=== PATIENT | female | born 1955 | race Caucasian/White ===

== ENCOUNTER → 2016-07-25 16:46 | Outpatient (CLI) | payer BC | END | disposition home or self-care (01) | LOC: D.MAMMO 06-30 09:30 | DX: N63 Unspecified lump in breast (principal) ==

== ENCOUNTER → 2017-08-31 10:00 | Outpatient (CLI) | payer BC ==
[~2017-08-31 10:00] MED LIST: BRILINTA90 MG PO; COREG 3.1253.125 MG PO; LEVOXYL125 MCG PO; LISINOPRIL2.5 MG PO; NEXIUM40 MG PO; PATANOL 0.1 % OP5 ML EACH EYE; PROAIR HFA8.5 GM INH; VALIUM10 MG PO
[2017-10-08 09:58] VITALS: BMI 32.4
== END | disposition home or self-care (01) ==
LOC: D.MAMMO 09:45
DX: Z12.31 Encounter for screening mammogram for malignant neoplasm of breast (principal)

== ENCOUNTER 2017-10-06 00:24 | Inpatient (IN) | payer BC ==
[2017-10-06] VITALS (23 sets, daily range): BP systolic 97–142; BP diastolic 48–105; BMI 32.3
[~2017-10-06] VITALS: Ht 167.6 cm; Wt 91.2 kg
--- NOTE | ~2017-10-06 | HEMODYNAMI ---
PATIENT:ARIAN PERAZA MEDICAL RECORD: [id number] : 53 LOCATION:D.CAT ADMISSION DATE: 10/06/17 Generatedon:10/06/20175:28 Patient name: ARIAN PERAZA Patient #: [id number] SSN: : 1955 Date of study: 10/06/2017 Page: Of Hemodynamic Procedure Report Patient Data Patient Demographics Procedure consent was obtained First Name: ARIAN Gender: Female Last Name: STU : 1955 [facility] Initial: DUY Age: 61 year(s) Patient #: [id number] Race: Unknown Additional ID: [id number] Contact details [address]: [address] [place] [address] State: [place] City: [place] Zip code: [address] Admission Admission Data Admission Date: 10/06/2017 Admission Time: 0:24 Procedure Procedure Types Cath Procedure Diagnostic Procedure LHC LHC w/Coronaries PCI Procedure AMI/SVG/INSIDE ACCOUNT EXECUTIVE PTCA or Stent AMI-BMS/RACHEL Initial Procedure Description Procedure Date Procedure Date: 10/06/2017 Procedure Start Time: 4:26 Procedure End Time: 5:28 Procedure Staff Name Function Mandeep Ferguson MD Performing Physician Yosef Alvarez RT Monitor Lisa Jose RT Scrub Santos Summers RN Nurse Procedure Data Cath Procedure Fluoroscopy Diagnostic fluoroscopy Total fluoroscopy Time: time: 21.3 min 21.3 min Diagnostic fluoroscopy Total fluoroscopy dose: dose: 1340 mGy 1340 mGy Contrast Material Contrast Material Type Amount (ml) Isovue 300 199 Entry Location Entry Primary Successful Side Size Upsize Upsize Entry Closure Succes sful Closure Location (Fr) 1 (Fr) 2 (Fr) Remarks Device Remarks Femoral Right 6 Fr Exoseal artery Short Estimated blood loss: 10 ml Diagnostic catheters Device Type Used For End Catheter Placement MULTIPACK JL 4.0 5Fr Procedure catheter MULTIPACK 3DRC 5Fr Procedure catheter MULTIPACK Pigtail 5 Fr Procedure catheter Procedure Complications No complications Procedure Medications Medication Administration Route Dosage Oxygen etCO2 Nasal cannula 2 l/min Heparin Flush Bag added to field 2 bags (1000units/500ml NS) 0.9% NaCl I.V. 100 ml/hr Fentanyl I.V. 50 mcg Versed I.V. 1 mg Fentanyl I.V. 50 mcg Versed I.V. 1 mg Heparin Bolus I.V. 9000 units Lopressor I.V. 2.5 mg Fentanyl I.V. 50 mcg Integrilin (Bolus I.V. 9 ml 2mg/ml) Lopressor I.V. 2.5 mg Integrilin (Bolus wasted 1 ml 2mg/ml) Integrilin Drip I.V. drip 14.4 ml/hr (75mg/100ml) Brilinta P.O. 180 mg Hemodynamics Rest Heart Rate: 107 (bpm) Pressure Samples Time Site Value (mmHg) Purpose Heart Use Rate(bpm) 4:32 AO 138/94(115) Snapshot 107 5:12 LV 134/26,40 Snapshot 94 5:13 AO 131/91(110) Pullback 95 5:13 LV 146/15,34 Pullback 95 Gradients Valve Time Site 1 Site 2 Mean SEP/DFP Peak To Heart Use (mmHg) (sec/min) Peak Rate (mmHg) (bpm) Aortic 5:13 LV AO 5 9 15 95 146/15,34 131/91(110) Calculations Valve P-P Mean Valve Index Valve Source Name Gradient Area Flow (cm2) Aortic 15 5 15 5 Snapshots Pre Cath Intra NCS Post Cath Vital Signs Time Heart Resp SPO2 etCO2 NIBP (mmHg) Rhythm Pain Sedation Rate (ipm) (%) (mmHg) Status Level (bpm) 4:21:54 96 17 90 33 Measuring NSR 0 (11) 10(A) , No pain 4:23:57 79 20 96 38.3 Time NSR 0 (11) 10(A) Exceeded , No pain 4:26:45 105 18 92 0 139/92(109) NSR 0 (11) 10(A) , No pain 4:31:32 105 16 94 39.8 133/97(116) NSR 0 (11) 9(A) , No pain 4:36:17 101 17 94 0 139/99(111) NSR 0 (11) 9(A) , No pain 4:41:05 102 17 95 0 143/103(119) NSR 0 (11) 9(A) , No pain 4:45:54 96 17 95 0 151/99(122) NSR 0 (11) 9(A) , No pain 4:50:43 95 17 94 0 133/104(121) NSR 0 (11) 9(A) , No pain 4:55:30 97 17 92 0 141/115(125) NSR 0 (11) 9(A) , No pain 5:00:18 97 17 92 0 133/97(108) NSR 0 (11) 9(A) , No pain 5:05:03 94 16 92 0 121/92(102) NSR 0 (11) 9(A) , No pain 5:09:48 95 16 92 39.8 116/88(103) NSR 0 (11) 9(A) , No pain 5:14:33 95 16 91 33.8 126/85(109) NSR 0 (11) 9(A) , No pain 5:19:19 97 16 92 36.8 122/94(113) NSR 0 (11) 9(A) , No pain 5:24:04 94 17 93 34.5 113/93(104) NSR 0 (11) 9(A) , No pain Medications Time Medication Route Dose Verified Delivered Reason Notes Effectiveness by by 4:24:00 Oxygen etCO2 2 Mandeep Santos Per physician Nasal l/min Marty Summers RN cannula 4:24:29 Heparin Flush added 2 Mandeep Santos Per physician Bag to bags Marty Summers RN (1000units/500ml field NS) 4:24:38 0.9% NaCl I.V. 100 Mandeep Santos Per physician ml/hr Marty Summers RN 4:24:47 Fentanyl I.V. 50 Mandeep Santos for sedation mcg Marty Summers RN 4:24:54 Versed I.V. 1 mg Mandeep Santos for sedation Marty Summers RN 4:26:37 Fentanyl I.V. 50 Mandeep Santos for sedation mcg Marty Summers RN 4:26:39 Versed I.V. 1 mg Mandeep Santos for sedation Marty Summers RN 4:35:36 Heparin Bolus I.V. 9000 Mandeep Santos for units Marty Summers RN anticoagulation 4:44:49 Lopressor I.V. 2.5 Mandeep Santos Per physician mg Marty Summers RN 4:48:46 Fentanyl I.V. 50 Mandeep Santos for sedation mcg Marty Summers RN 4:55:09 Integrilin I.V. 9 ml Mandeep Santos for (Bolus 2mg/ml) Marty Summers RN antiplatelet therapy 4:58:52 Lopressor I.V. 2.5 Mandeep Santos Per physician mg Marty Summers RN 5:08:51 Integrilin wasted 1 ml Mandeep Santos for (Bolus 2mg/ml) Marty Summers RN antiplatelet therapy 5:16:27 Integrilin Drip I.V. 14.4 Mandeep Santos for (75mg/100ml) drip ml/hr Marty Summers RN antiplatelet therapy 5:23:37 Brilinta P.O. 180 Mandeep Santos for mg Marty Summers RN antiplatelet therapy Procedure Log Time Note 4:00:45 Yosef CINTRON(R) sent for patient. Start room use. 4:07:46 Time tracking: Call back (After hours or weekends) 4:07:50 Plan of Care:Hemodynamics will remain stable., Cardiac rhythm will remain stable., Comfort level will be maintained., Respiratory function will remain adequate., Patient/ family verbilizes understanding of procedure., Procedure tolerated without complication., Recovers from procedure without complications.. 4:15:03 Patient received from ED to CCL 1 Alert and oriented. Tansferred to table in Supine position. 4:15:05 Warm blankets applied, and nilesh hugger turned on for patient comfort. 4:15:05 Correct patient and procedure confirmed by team. 4:15:06 Signed procedure consent form obtained from patient. 4:15:07 ECG and BP/O2 sat monitors applied to patient. 4:20:46 Vital chart was started 4:22:11 Rhythm: sinus rhythm 4:22:13 Full Disclosure recording started 4:22:24 H&P Date Dictated: 10/06/2017 Emergent; H&P N/A. 4:22:25 Pre-procedure instructions explained to patient. 4:22:26 Pre-op teaching completed and patient verbalized understanding. 4:22:30 Family in waiting room. 4:22:32 Patient NPO since Midnight. 4:22:34 Is the patient allergic to Iodine/contrast media? No. 4:22:45 Is patient on blood thinner?No 4:22:47 Patient diabetic? No. 4:22:49 Previous problem with sedation/anesthesia? No ? 4:22:50 Snore? Yes 4:22:51 Sleep apnea? No 4:22:52 Deviated septum? No 4:22:53 Opens mouth fully? Yes 4:22:53 Sticks out tongue? Yes 4:22:56 Airway obstruction? No ? 4:22:57 Dentures? No ? 4:23:00 Pre procedure: right dorsailis pedis pulse 1+ Palpable, but thready & weak; easily obliterated 4:23:03 Patient pain scale 0/10 ?. 4:23:09 IV patent on arrival in right forearm with 0.9% NaCl at [facility]. 4:23:16 Lab results completed and on chart. 4:23:19 Right groin area was prepped with chlora-prep and draped in sterile fashion 4:23:20 Alarms reviewed by R. N. 4:23:20 Sharps counted by scrub and verified by R.N. 4:23:22 --------ALL STOP TIME OUT------ 4:23:26 Final Timeout: patient, procedure, and site verified with staff and physician. All members of the team are in agreement. 4:23:27 Right groin site verified by team. 4:23:31 Physical assessment completed. ASA score P 2 - A patient with mild systemic disease as per Mandeep Ferguson MD. 4:23:34 Sedation plan: IV Moderate Sedation Medication:Versed, Fentanyl 4:23:45 Use device set Femoral Dx 4:23:55 Use device set FERGUSON PCI 4:24:00 Oxygen 2 l/min etCO2 Nasal cannula was administered by Santos Summers RN; Per physician; 4:24:29 Heparin Flush Bag (1000units/500ml NS) 2 bags added to field was administered by Santos Summers RN; Per physician; 4:24:38 0.9% NaCl 100 ml/hr I.V. was administered by Santos Summers RN; Per physician; 4:24:47 Fentanyl 50 mcg I.V. was administered by Santos Summers RN; for sedation; 4:24:54 Versed 1 mg I.V. was administered by Santos Summers RN; for sedation; 4:25:46 Vital chart was stopped 4:25:47 Vital chart was started 4:26:37 Fentanyl 50 mcg I.V. was administered by Santos Summers RN; for sedation; 4:26:39 Versed 1 mg I.V. was administered by Santos Summers RN; for sedation; 4:26:53 Procedure started. 4:26:56 Local anesthetic to right femoral artery with Lidocaine 2% by Mandeep Ferguson MD.INITIAL ACCESS ONLY 4:27:19 ACIST Syringe (92119) opened to sterile field. 4:27:19 Bag Decanter (2002S) opened to sterile field. 4:27:20 Medline Cath Pack ([id number]) opened to sterile field. 4:27:22 ACIST Hand Control (53320) opened to sterile field. 4:27:23 ACIST Manifold (66875) opened to sterile field. 4:27:25 Tegaderm 4 x 4 (1626W) opened to sterile field. 4:27:26 PERCUTANEOUS ENTRY 19GA needle opened to sterile field. 4:27:30 DIAGNOSTIC WIRE .035 260cm J wire (311843) opened to sterile field. 4:27:31 DIAGNOSTIC Multipack 5Fr catheter set (VO9116) opened to sterile field. 4:27:33 TUBING High Pressure Extension Tubing (Marty) (TK1724L) opened to sterile field. 4:27:33 INFLATOR Merit BasixCompak (DJ1551) opened to sterile field. 4:27:40 BMW 300cm Sayre 2 J wire (1506880A) opened to sterile field. 4:27:43 SHEATH Prelude 6Fr 0.035 (MRT-9J-19-035) opened to sterile field. 4:27:53 A 6 Fr Short sheath was inserted into the Right Femoral artery 4:28:04 A MULTIPACK JL 4.0 5Fr catheter was advanced over the wire and used for Procedure. 4:28:26 LCA angiography performed. 4:28:29 Catheter exchanged over wire. 4:28:31 GUIDE 6FR XBLAD 3.5 catheter ([id number]) opened to sterile field. 4:30:03 A MULTIPACK 3DRC 5Fr catheter was advanced over the wire and used for Procedure. 4:30:08 RCA angiography performed. 4:30:10 Catheter exchanged over wire. 4:30:18 6 Fr XBLAD 3.5 guide catheter was inserted over the wire 4:32:06 Baseline sample Acquired. 4:32:26 BMW wire advanced. 4:35:36 Heparin Bolus 9000 units I.V. was administered by Santos Summers RN; for anticoagulation; 4:37:38 Wire removed, unable to cross lesion. 4:37:50 LUGE Straight 300cm 0.014 guide wire ([id number]) opened to sterile field. 4:38:00 Luge wire advanced. 4:44:49 Lopressor 2.5 mg I.V. was administered by Santos Summers RN; Per physician; 4:45:34 Wire removed, unable to cross lesion. 4:46:37 FIELDER XT J 300cm guide wire ([id number]) opened to sterile field. 4:47:09 Fielder wire advanced. 4:48:46 Fentanyl 50 mcg I.V. was administered by Santos Summers RN; for sedation; 4:50:30 Wire advanced across lesion. 4:52:49 Inflate balloon Inflation number: 1 A EMERGE OTW 2.5 x 20 balloon ([id number]) was prepped and advanced across the Prox LAD, then inflated to 10 KATE for 0:10 (min:sec). 4:54:05 Balloon advanced passed lesion. Wire exchange for Luge wire. 4:55:09 Integrilin (Bolus 2mg/ml) 9 ml I.V. was administered by Santos Summers RN; for antiplatelet therapy; 4:55:44 Multiple inflations made at 10 Atms. 4:56:53 Balloon removed over the wire. 4:58:52 Lopressor 2.5 mg I.V. was administered by Santos Summers RN; Per physician; 4:59:29 Place stent Inflation Number: 2 A INTEGRITY RX 3.0 x 30 stent ([id number]) was prepped and advanced across the Prox LAD. The stent was deployed at 10 KATE for 0:10 (min:sec). 5:01:26 Stent catheter was removed intact over wire. 5:02:43 Place stent Inflation Number: 3 A INTEGRITY OTW 3.5 X 18 stent ([id number]) was prepped and advanced across the Prox LAD. The stent was deployed at 10 KATE for 0:10 (min:sec). 5::44 Stent catheter was removed intact over wire. 5::44 Wire redirected to DIAG. 5:08:51 Integrilin (Bolus 2mg/ml) 1 ml wasted was administered by Santos Summers RN; for antiplatelet therapy; 5:11:02 The EMERGE OTW 2.0 x 15 balloon ([id number]) was advanced and then removed because of failure to cross lesion 5::24 Balloon removed over the wire. 5:11:24 Wire removed. 5:11:26 Guide catheter removed. 5:12:01 A MULTIPACK Pigtail 5 Fr catheter was advanced over the wire and used for Procedure. 5:13:37 LV angiography performed. 5:13:45 LV gram done using SOTO 5:13:51 EF : 40 % 5:13:52 LV hemodynamics recorded. 5:13:54 Injector settings: Ml/sec: 10, Volume: 20, 5:13:57 Catheter removed. 5:13:59 EXOSEAL 6Fr (EX600) opened to sterile field. 5:14:30 Sheath removed intact; hemostasis achieved with Exoseal to the Right Femoral artery. 5:14:37 Procedure ended.(Physican Out) 5:15:02 Fluoroscopy time 21.30 minutes. 5:15:06 Fluoroscopy dose: 1340 mGy 5:15:06 Flurop Dose total: 1340 5:15:11 Contrast amount:Isovue 300 199ml. 5:15:13 Sharps counted by scrub and verified by R.N. 5:15:14 Insertion/operative site no bleeding no hematoma. 5:15:16 Post-op/insertion site Right Femoral artery dressed using a 4 x 4 and Tegaderm. 5:15:18 Post Procedure Pulses reassessed and unchanged 5:15:20 Post-procedure physical assessment completed. ASA score P 2 - A patient with mild systemic disease as per Mandeep Ferguson MD. 5:15:56 Post procedure rhythm: unchanged. 5:15:59 Estimated blood loss: 10 ml 5:16:00 Post procedure instruction explained to patient.Patient verbalizes understanding. 5:16:01 Patient needs reinforcement of post procedure teaching. 5:16:11 Procedure type changed to Cath procedure, Diagnostic procedure, LHC, LHC w/Coronaries, PCI procedure, AMI/SVG/INSIDE ACCOUNT EXECUTIVE PTCA or Stent, AMI-BMS/RACHEL Initial 5:16:16 Procedure Complication : No complications 5:16:27 Integrilin Drip (75mg/100ml) 14.4 ml/hr I.V. drip was administered by Santos Summers RN; for antiplatelet therapy; 5:18:23 Procedure and supply charges have been captured, reviewed, submitted and are correct. 5:23:37 Brilinta 180 mg P.O. was administered by Santos Summers RN; for antiplatelet therapy; 5:27:38 See physician's report for complete and final results. 5:27:57 Report given to ICU. 5:28:03 Patient transfered to ICU with Bed. 5:28:06 Procedure ended. 5:28:06 Full Disclosure recording stopped 5:28:10 End room use (Document Last) 5:28:59 Vital chart was stopped Intervention Summary Intervention Notes Time ActionType Lesion and Equipment Action# Pressure Duration Attributes Used 4:52:49 Inflate Prox LAD EMERGE OTW 1 10 00:10 balloon 2.5 x 20 balloon ([id number]) 4:59:29 Place stent Prox LAD INTEGRITY RX 2 10 00:10 3.0 x 30 stent ([id number]) 5:02:43 Place stent Prox LAD INTEGRITY 3 10 00:10 OTW 3.5 X 18 stent ([id number]) 5:11:02 Discard EMERGE OTW Balloon 2.0 x 15 balloon ([id number]) Device Usage Item Name Manufacture Quantity Catalog Number Hospital Part Current Minimal Lot# / Charge Number Stock Stock Serial# Code ACIST Syringe Acist 1 29121 924626 216857 329972 20 (42291) Medical Systems Inc Bag Decanter Microtek 1 2001S 973443 73066 273767 5 (2001S) Medical Inc. Medline Cath Cardinal 1 [id number] 482576 41484 892155 5 Pack Health (OOJW34849) ACIST Hand Acist 1 37335 570190 340540 657080 5 Control (92108) Medical Systems Inc ACIST Manifold Acist 1 00475 762413 046541 508588 5 (40887) Medical Systems Inc Tegaderm 4 x 4 3M 1 1626W 275811 976733 043627 5 (1626W) PERCUTANEOUS Cook Medical 1 V84024 192633 281431 5 ENTRY 19GA needle DIAGNOSTIC WIRE St Kar 1 530366 448248 960849 360690 30 .035 260cm J wire (097119) DIAGNOSTIC Cardinal 1 LH2062 292933 35938 351845 30 Multipack 5Fr Health catheter set (OS9826) TUBING High Merit 1 [id number] 815352 53191 274975 10 Pressure Medical Extension Tubing (Ferguson) (YN4934C) INFLATOR Merit Merit 1 FD1890 824404 547264 871723 15 BasixCompak Medical (SQ0362) BMW 300cm Puga 1 [id number] 454565 593389 736192 5 Sayre 2 J Vascular wire (1651752R) SHEATH Prelude Merit 1 FMY-1W-85-35 850316 9460626 460207 5 6Fr 0.035 Medical (RHT-8Z-11-035) MULTIPACK JL Cardinal 1 663503 5 4.0 5Fr Health catheter GUIDE 6FR XBLAD Cardinal 1 24129669 008714 708530 125716 10 3.5 catheter Health (85794051) MULTIPACK 3DRC Cardinal 1 108956 5 5Fr catheter Health LUGE Straight [place] 1 [id number] 771733 095513 730285 5 300cm 0.014 Scientific guide wire (39436779) FIELDER XT J Puga 1 [id number] 369999 770971 271674 5 300cm guide Vascular wire ([id number]) EMERGE OTW 2.5 [place] 1 [id number] 374248 018134 785388 5 [id number] x 20 balloon Scientific ([id number]) INTEGRITY RX Medtronic 1 [id number] 227274 841041 233809 5 [id number] 3.0 x 30 stent ([id number]) INTEGRITY OTW Medtronic 1 [id number] 734569 231338 5 [id number] 3.5 X 18 stent ([id number]) EMERGE OTW 2.0 [place] 1 [id number] 283302 501237 760180 5 [id number] x 15 balloon Scientific ([id number]) MULTIPACK Cardinal 1 546769 5 Pigtail 5 Fr Health catheter EXOSEAL 6Fr Cardinal 1 EX600 468513 987421 705192 10 (EX600) Health Signature Audit [place] Stage Time Signature Unsigned Intra-Procedure 10/06/2017 Yosef Alvarez 5:28:48 AM RT(R) Signatures Monitor : Yosef Alvarez RT Signature : Date : Time : [place] [id number] [place] [address]
[2017-10-06] MEDS ORDERED: LEVOXYL125 MCG PO (00:37)
[2017-10-06] MEDS ORDERED: PROAIR HFA8.5 GM INH (00:38)
[2017-10-06] MEDS ORDERED: NEXIUM40 MG PO (00:38)
[2017-10-06] MEDS ORDERED: PATANOL 0.1 % OP5 ML EACH EYE (00:38)
[2017-10-06 01:24] LABS: BASOPHILS 1.2 % (0-2); EOSINOPHILS 5.9 % (0-7); HEMATOCRIT 44.5 % (36.0-48.0); HEMOGLOBIN 15.3 g/dL (12-16); IMMATURE GRANULOCYTES 0.3 % (0-5); MCHC 34.4 g/dL (31.0-37.0); MCV 90.1 fL (80.0-100.0); MEAN PLATELET VOLUME 11.3 fL (7.4-10.4); MONOCYTES 7.1 % (2-11); NEUTROPHILS 41.5 % (40-80); PLATELET COUNT 328 10x3/uL (130-400); RBC 4.94 10x6/uL (4.00-5.40); WBC 17.3 10x3/uL (4.8-10.8)
[2017-10-06 01:31] LABS: ALBUMIN 4.1 g/dL (3.4-5.0); BILIRUBIN - TOTAL 0.3 mg/dL (0.2-1.3); CALCIUM 9.3 mg/dL (8.5-10.1); CARBON DIOXIDE 22.9 mmol/L (21.0-32.0); POTASSIUM - SERUM 3.9 mmol/L (3.5-5.1); PROTEIN - SERUM 7.2 g/dL (6.4-8.2)
[2017-10-06 01:33] LABS: TROPONIN-I 0.045 ng/mL (0.000-0.060)
[2017-10-06 06:16] LABS: CALC OSMOLALITY 290 mosm/kg (275-300); CALCIUM 8.4 mg/dL (8.5-10.1); CARBON DIOXIDE 25.2 mmol/L (21.0-32.0); CHLORIDE - SERUM 107 mmol/L (98-107); CREATININE - SERUM 0.8 mg/dL (0.6-1.3); GLUCOSE 178 mg/dL (74-106); POTASSIUM - SERUM 4.1 mmol/L (3.5-5.1); SODIUM 143 mmol/L (136-145); UREA NITROGEN 19 mg/dL (7-18); eGFR NON AFRICAN AMERICAN 77 mL/min (90-120)
[2017-10-06] MEDS ORDERED: VALIUM10 MG PO (06:16)
[2017-10-07] VITALS (25 sets, daily range): BP systolic 89–123; BP diastolic 61–105
[2017-10-07 06:23] LABS: BASOPHILS 0.3 % (0-2); EOSINOPHILS 0.1 % (0-7); HEMATOCRIT 41.7 % (36.0-48.0); HEMOGLOBIN 13.6 g/dL (12-16); IMMATURE GRANULOCYTES 0.3 % (0-5); LYMPHOCYTES 8.9 % (15-50); MCH 30.6 pg (26.0-34.0); MCHC 32.6 g/dL (31.0-37.0); MEAN PLATELET VOLUME 10.8 fL (7.4-10.4); MONOCYTES 8.2 % (2-11); NEUTROPHILS 82.2 % (40-80); RBC 4.45 10x6/uL (4.00-5.40); RDW 13.3 % (11.5-14.5); WBC 15.2 10x3/uL (4.8-10.8)
[2017-10-07 06:25] LABS: MCV 93.7 fL (80.0-100.0); PLATELET COUNT 211 10x3/uL (130-400)
[2017-10-07 06:49] LABS: ALBUMIN 3.3 g/dL (3.4-5.0); ALKALINE PHOSPHATASE 149 U/L (46-116); CALC OSMOLALITY 280 mosm/kg (275-300); CALCIUM 8.8 mg/dL (8.5-10.1); CARBON DIOXIDE 27.4 mmol/L (21.0-32.0); CHLORIDE - SERUM 108 mmol/L (98-107); CREATININE - SERUM 0.7 mg/dL (0.6-1.3); GLUCOSE 137 mg/dL (74-106); POTASSIUM - SERUM 4.1 mmol/L (3.5-5.1); PRO BNP 3067 pg/mL (0-125); PROTEIN - SERUM 6.3 g/dL (6.4-8.2); SODIUM 139 mmol/L (136-145); UREA NITROGEN 16 mg/dL (7-18); eGFR NON AFRICAN AMERICAN 90 mL/min (90-120)
[2017-10-07 06:50] LABS: ALT (SGPT) 114 U/L (10-68)
[2017-10-07 07:10] LABS: TROPONIN-I 90.636 ng/mL (0.000-0.060)
[2017-10-07 10:37] LABS: APPEARANCE CLEAR (CLEAR); COLOR YELLOW (YELLOW); SPECIFIC GRAVITY 1.025 (1.005-1.020)
[2017-10-07 10:38] LABS: BACTERIA FEW /hpf (NONE SEEN); BILIRUBIN NEGATIVE (NEGATIVE); EPITHELIAL CELLS 0-5 /hpf (0-5); GLUCOSE 100 mg/dL (NEGATIVE); KETONE NEGATIVE (NEGATIVE); NITRITE NEGATIVE (NEGATIVE); PROTEIN NEGATIVE (NEGATIVE); RED CELLS - URINE 0-5 /hpf (0-5); UROBILINOGEN NORMAL (NORMAL); WHITE CELLS - URINE 0-5 /hpf (0-5)
[2017-10-08] VITALS (12 sets, daily range): BP systolic 64–118; BP diastolic 40–83; Ht 167.6 cm; Wt 91.2 kg
[2017-10-09 01:05] VITALS: BP 102/67
[2017-10-09 05:10] VITALS: BP 106/64
[2017-10-09 08:36] VITALS: BP 130/76
[2017-10-09] MEDS ORDERED: LISINOPRIL2.5 MG PO (08:47)
[2017-10-09] MEDS ORDERED: COREG 3.1253.125 MG PO (08:48)
[2017-10-09] MEDS ORDERED: BRILINTA90 MG PO (08:49)
== END 2017-10-09 10:39 | disposition home or self-care (01) | DRG 249 ==
LOC: D.CATH 00:24 → D.ER 00:24 → EDSTATUS 04:15 → D.ICU 05:36 → D.CATH 05:37 → D.ICU 05:37 → D.M2 05:37
PROVIDERS: Family Medicine; Internal Medicine Cardiovascular Disease
PROC: B211YZZ Fluoroscopy of Multiple Coronary Arteries using Other Contrast (ICD-10-PCS; 2017-10-06)
PROC: B215YZZ Fluoroscopy of Left Heart using Other Contrast (ICD-10-PCS; 2017-10-06)
PROC: 3E07317 Introduction of Other Thrombolytic into Coronary Artery, Percutaneous Approach (ICD-10-PCS; 2017-10-06)
PROC: 02703DZ Dilation of Coronary Artery, One Artery with Intraluminal Device, Percutaneous Approach (ICD-10-PCS; principal; 2017-10-06 04:00)
PROC: 4A023N7 Measurement of Cardiac Sampling and Pressure, Left Heart, Percutaneous Approach (ICD-10-PCS; 2017-10-06 04:00)
DX: I21.11 ST elevation (STEMI) myocardial infarction involving right coronary artery (principal); I25.118 Atherosclerotic heart disease of native coronary artery with other forms of angina pectoris; I24.0 Acute coronary thrombosis not resulting in myocardial infarction

== ENCOUNTER → 2017-12-19 16:55 | Outpatient (CLI) | payer BC ==
[2017-10-08 09:58] VITALS: BMI 32.4
[2017-12-19 18:15] LABS: CALC OSMOLALITY 285 mosm/kg (275-300); CARBON DIOXIDE 28.5 mmol/L (21.0-32.0); CHLORIDE - SERUM 104 mmol/L (98-107); CREATININE - SERUM 0.8 mg/dL (0.6-1.3); GLUCOSE 119 mg/dL (74-106); POTASSIUM - SERUM 4.8 mmol/L (3.5-5.1); SODIUM 141 mmol/L (136-145); UREA NITROGEN 24 mg/dL (7-18); eGFR NON AFRICAN AMERICAN 77 mL/min (90-120)
== END | disposition home or self-care (01) ==
LOC: D.LABREF 16:55
PROVIDERS: Nurse Practitioner Adult Health
DX: R06.00 Dyspnea, unspecified (principal)

== ENCOUNTER → 2018-05-22 07:53 | Outpatient (CLI) | payer BC ==
[2017-10-08 09:58] VITALS: BMI 32.4
== END | disposition home or self-care (01) ==
LOC: D.RT 07:53
PROVIDERS: ATTEND Internal Medicine Pulmonary Disease
DX: J44.9 Chronic obstructive pulmonary disease, unspecified (principal); J30.9 Allergic rhinitis, unspecified

== ENCOUNTER → 2018-06-17 12:22 | Outpatient (CLI) | payer BC ==
[2017-10-08 09:58] VITALS: BMI 32.4
[2018-06-20 17:09] LABS: IMMUNOGLOBULIN E QNS IU/mL (())
== END | disposition home or self-care (01) ==
LOC: D.LAB 11:00
PROVIDERS: ATTEND Internal Medicine Pulmonary Disease
DX: J44.9 Chronic obstructive pulmonary disease, unspecified (principal); J30.9 Allergic rhinitis, unspecified

== ENCOUNTER 2018-07-18 13:43 | Inpatient (IN) | payer BC ==
[2018-07-18] MEDS ORDERED: COREG 3.1253.125 MG PO (14:59)
[2018-07-18] MEDS ORDERED: LEVOXYL112 MC1 PO (15:00)
[2018-07-18 15:52] VITALS: BP 115/74
[2018-07-18 17:20] VITALS: BMI 29.1
--- NOTE | 2018-07-18 17:27 | NUR ---
ASSESSMENT COMPLETE AAOX4 RESP UNLABORED EATING SUPPER AT THIS TIME NAD NOTED STATES FEELS MUCH BETTER SINCE HAD O2 ON
[2018-07-18 17:51] LABS: BASOPHILS 0.2 % (0-2); EOSINOPHILS 1.4 % (0-7); HEMATOCRIT 40.1 % (36.0-48.0); HEMOGLOBIN 13.9 g/dL (12-16); IMMATURE GRANULOCYTES 0.4 % (0-5); LYMPHOCYTES 14.3 % (15-50); MCH 31.7 pg (26.0-34.0); MCHC 34.7 g/dL (31.0-37.0); MCV 91.3 fL (80.0-100.0); MEAN PLATELET VOLUME 10.1 fL (7.4-10.4); MONOCYTES 6.8 % (2-11); NEUTROPHILS 76.9 % (40-80); RBC 4.39 10x6/uL (4.00-5.40); RDW 12.7 % (11.5-14.5); WBC 19.6 10x3/uL (4.8-10.8)
[2018-07-18 17:52] LABS: PLATELET COUNT 276 10x3/uL (130-400)
[2018-07-18 17:58] LABS: INR 1.16 (0.85-1.17); PROTIME 14.2 SECONDS (11.6-15.0)
[2018-07-18 18:00] LABS: D-DIMER-QUANTITATIVE 0.93 ug/mLFEU (0.20-0.54)
[2018-07-18 18:14] LABS: CKMB 0.5 U/L (0.0-3.6); CREATINE KINASE 35 UL (21-215)
[2018-07-18 18:15] LABS: TROPONIN-I < 0.017 ng/mL (0.000-0.060)
[2018-07-18 19:08] LABS: ALBUMIN 3.1 g/dL (3.4-5.0); ALKALINE PHOSPHATASE 365 U/L (46-116); ALT (SGPT) 74 U/L (10-68); BILIRUBIN - TOTAL 0.68 mg/dL (0.2-1.3); CALC OSMOLALITY 274 mosm/kg (275-300); CALCIUM 9.4 mg/dL (8.5-10.1); CARBON DIOXIDE 23.5 mmol/L (21.0-32.0); CHLORIDE - SERUM 101 mmol/L (98-107); CREATININE - SERUM 0.8 mg/dL (0.6-1.3); GLUCOSE 123 mg/dL (74-106); POTASSIUM - SERUM 3.4 mmol/L (3.5-5.1); PROTEIN - SERUM 7.2 g/dL (6.4-8.2); SODIUM 137 mmol/L (136-145); UREA NITROGEN 13 mg/dL (7-18); eGFR NON AFRICAN AMERICAN 77 mL/min (90-120)
--- NOTE | 2018-07-18 19:30 | NUR ---
VERBAL ORDER FOR FLU SWAB TAKEN FROM DR BORREGO
--- NOTE | 2018-07-18 19:40 | NUR ---
ALERT AND ORIENTED AND STATES SHE FEELS BETTER SINCE O2 WAS APPLIED ...SKIN WARM AND DRY AND LCA BOWEL SOUNDS X2 AND PULSES ARE INTACT BED IS LOW AND LOCKED AND CALL LIGHT IS IN REACH AND SRX3...RETAPED SALINE LOCK TO LEFT FA,,,,FLU SWAB OBTAINED AT THIS TIME
--- NOTE | 2018-07-18 20:11 | NUR ---
REPORTED BP AT 187/116...RECHECK 156/89
[2018-07-18 22:43] LABS: CKMB 0.7 U/L (0.0-3.6); CREATINE KINASE 38 UL (21-215); TROPONIN-I < 0.017 ng/mL (0.000-0.060)
[2018-07-18 22:57] VITALS: BP 119/73
[2018-07-19 00:28] LABS: APPEARANCE CLEAR (CLEAR); BILIRUBIN NEGATIVE (NEGATIVE); COLOR YELLOW (YELLOW); GLUCOSE NEGATIVE (NEGATIVE); KETONE NEGATIVE (NEGATIVE); NITRITE NEGATIVE (NEGATIVE); PROTEIN NEGATIVE (NEGATIVE); UROBILINOGEN NORMAL (NORMAL)
--- NOTE | 2018-07-19 00:54 | NUR ---
SALINE LOCKED IV FLUSHES WELL BUT WILL NOT RUN KEEP OPEN ON PUMP
[2018-07-19 06:37] VITALS: BP 122/65
[2018-07-19 06:40] LABS: CKMB 0.7 U/L (0.0-3.6); CREATINE KINASE 40 UL (21-215); TROPONIN-I < 0.017 ng/mL (0.000-0.060)
--- NOTE | 2018-07-19 07:40 | NUR ---
ASSESSMENT COMPLETED. ALERT AND ORIENTED. UP AB KENNETH. TELEMERTY SHOWS SR 96. 02 AT 2 L/M PRN. SL TO LEFT HAND. DENIES ANY NEEDS. SR UP WITH CALL LIGHT IN REACH
[2018-07-19 07:58] LABS: CALCIUM 9.4 mg/dL (8.5-10.1); CARBON DIOXIDE 21.6 mmol/L (21.0-32.0); CHLORIDE - SERUM 104 mmol/L (98-107); CREATININE - SERUM 0.8 mg/dL (0.6-1.3); GLUCOSE 170 mg/dL (74-106); PRO BNP 968 pg/mL (0-125); SODIUM 138 mmol/L (136-145); eGFR NON AFRICAN AMERICAN 77 mL/min (90-120)
[2018-07-19 07:59] LABS: CALC OSMOLALITY 281 mosm/kg (275-300); POTASSIUM - SERUM 4.1 mmol/L (3.5-5.1); UREA NITROGEN 17 mg/dL (7-18)
[2018-07-19 08:18] LABS: BASOPHILS 0.1 % (0-2); EOSINOPHILS 0 % (0-7); HEMATOCRIT 39.1 % (36.0-48.0); HEMOGLOBIN 13.5 g/dL (12-16); IMMATURE GRANULOCYTES 0.5 % (0-5); LYMPHOCYTES 6.5 % (15-50); MCH 31.8 pg (26.0-34.0); MCHC 34.5 g/dL (31.0-37.0); MCV 92.2 fL (80.0-100.0); MEAN PLATELET VOLUME 10.7 fL (7.4-10.4); MONOCYTES 1.9 % (2-11); RBC 4.24 10x6/uL (4.00-5.40); RDW 12.7 % (11.5-14.5); WBC 15.2 10x3/uL (4.8-10.8)
[2018-07-19 08:22] LABS: PLATELET COUNT 332 10x3/uL (130-400)
[2018-07-19 09:10] VITALS: BP 101/63
[2018-07-19 12:46] VITALS: BMI 29.0
[2018-07-19 13:24] VITALS: BP 106/66
--- NOTE | 2018-07-19 14:14 | NUR ---
I have reviewed this patient and I concur with the Shift Assessment completed by the Licensed Practical Nurse today this shift.
[2018-07-19 17:05] VITALS: BP 100/64
--- NOTE | 2018-07-19 18:52 | NUR ---
LYING QUIETLY, NO NEEDS VOICED. TELEMERTY SHOWS SR. NONEEDS VOICED
--- NOTE | 2018-07-19 19:05 | NUR ---
AWAKE AND ALERT...IV STOPPED AND SITE FLUSHED AND LOCKED. LCTA AND SKIN WARM AND DRY O2 AT 2 AND PT STATES SHE FEELS MUCH BETTER
[2018-07-19 20:00] VITALS: BP 85/51
[2018-07-20] VITALS: BP 90/50
[2018-07-20 05:38] LABS: HEMATOCRIT 36.2 % (36.0-48.0); HEMOGLOBIN 12.6 g/dL (12-16); MCH 32.1 pg (26.0-34.0); MCHC 34.8 g/dL (31.0-37.0); MCV 92.3 fL (80.0-100.0); NEUTROPHILS 88.8 % (40-80); PLATELET COUNT 361 10x3/uL (130-400); RBC 3.92 10x6/uL (4.00-5.40); RDW 12.8 % (11.5-14.5); WBC 21.7 10x3/uL (4.8-10.8)
[2018-07-20 06:03] LABS: ANION GAP 15.8 mmol/L (8-16); CALCIUM 9.3 mg/dL (8.5-10.1); CARBON DIOXIDE 22.7 mmol/L (21.0-32.0); CREATININE - SERUM 0.9 mg/dL (0.6-1.3); POTASSIUM - SERUM 4.5 mmol/L (3.5-5.1)
[2018-07-20 06:22] VITALS: BP 92/42
--- NOTE | 2018-07-20 07:38 | NUR ---
ROUNDING DONE WITH PATIENT VOICING NO NEEDS AT THIS TIME. ON HEART MONITOR SHOWING SR, HR 93. ON ROOM AIR. LEFT WRIST PIV SEEN WITH SALINE LOCK. ON EP, K+ IS 4.3. GLASSES ON.
[2018-07-20 09:36] VITALS: BP 133/70
[2018-07-20 12:30] VITALS: BP 131/83
[2018-07-20 16:48] VITALS: BP 107/68
--- NOTE | 2018-07-20 17:30 | NUR ---
SITTING UP IN THE BED EATING SUPPER. IV LEVAQUIN SLOWED DOWN PATIENT STATES THAT IT IS BURNING WHILE INFUSING, PATIENT TASTED THE SALINE I FLUSHED HER IV. RATE LOWERED TO 50 CC/HR.
--- NOTE | 2018-07-20 19:29 | NUR ---
RECIEVED LAYING IN BED WITH EYES OPEN AND TV ON. ALERT AND ORIENTED X4. UP AD KENNETH TO B/R. IV TO LEFT WRIST WITH LEVAQUIN INFUSING AT 50CC/HR. TELEMETRY IN PLACE. DENIES ANY NEEDS AT THIS TIME.
[2018-07-20 20:00] VITALS: BP 119/71
[2018-07-21] VITALS: BP 120/70
[2018-07-21 05:03] LABS: BASOPHILS 0.1 % (0-2); EOSINOPHILS 0 % (0-7); HEMATOCRIT 37.8 % (36.0-48.0); HEMOGLOBIN 13.1 g/dL (12-16); LYMPHOCYTES 6.7 % (15-50); MCH 31.9 pg (26.0-34.0); MCHC 34.7 g/dL (31.0-37.0); MEAN PLATELET VOLUME 9.7 fL (7.4-10.4); MONOCYTES 4.9 % (2-11); NEUTROPHILS 86.3 % (40-80); RBC 4.11 10x6/uL (4.00-5.40); RDW 12.8 % (11.5-14.5); WBC 19.8 10x3/uL (4.8-10.8)
[2018-07-21 05:06] LABS: PLATELET COUNT 447 10x3/uL (130-400)
[2018-07-21 05:13] LABS: CALCIUM 9.4 mg/dL (8.5-10.1); CARBON DIOXIDE 26.5 mmol/L (21.0-32.0); POTASSIUM - SERUM 4.5 mmol/L (3.5-5.1)
--- NOTE | 2018-07-21 07:23 | NUR ---
ROUNDING DONE WITH PATIENT RESTING ON SIDE, RESP ARE EVEN. ON ROOM AIR. OBESE. LEFT WRIST PIV SEEN WITH SALINE LOCK. ON EP, K+ 4.5.
[2018-07-21 08:32] VITALS: BP 107/64
--- NOTE | 2018-07-21 09:39 | NUR ---
TO RADIOLOGY VIA WHEELCHAIR AND BACK FOR CXR.
[2018-07-21 12:27] VITALS: BP 119/82
--- NOTE | 2018-07-21 13:23 | NUR ---
AT BEDSIDE. AWAITING DR BORREGO FOR FINAL DISCHARGE.
--- NOTE | 2018-07-21 14:28 | NUR ---
STILL NO TESSALON PEARLS IN PCU OMNICELL. I CALLED [facility] TO GET SOME.
--- NOTE | 2018-07-21 15:10 | NUR ---
TYLENOL TABS (2) GIVEN FOR HEADACHE 06/02.
[2018-07-21 15:58] VITALS: BP 113/72
--- NOTE | 2018-07-21 16:34 | NUR ---
DR NARANJOORKNELSY HERE TO MAKE ROUNDS.
--- NOTE | 2018-07-21 19:36 | NUR ---
RECIEVED UP IN BED WITH EYES OPEN AND TV ON. ALERT AND ORIENTED X4. UP AD KENNETH. IV TO LEFT WRIST SL. TELEMETRY IN PLACE. DENIES ANY NEEDS.
[2018-07-21 20:26] VITALS: BP 105/72
[2018-07-22 01:17] VITALS: BP 96/57
[2018-07-22 05:13] LABS: BASOPHILS 0.1 % (0-2); EOSINOPHILS 0 % (0-7); HEMATOCRIT 37.9 % (36.0-48.0); HEMOGLOBIN 12.8 g/dL (12-16); IMMATURE GRANULOCYTES 3.9 % (0-5); LYMPHOCYTES 18.8 % (15-50); MCH 31.2 pg (26.0-34.0); MCHC 33.8 g/dL (31.0-37.0); MCV 92.4 fL (80.0-100.0); MEAN PLATELET VOLUME 9.5 fL (7.4-10.4); MONOCYTES 9.3 % (2-11); NEUTROPHILS 67.9 % (40-80); PLATELET COUNT 454 10x3/uL (130-400); RDW 12.8 % (11.5-14.5); WBC 19.8 10x3/uL (4.8-10.8)
[2018-07-22 05:55] VITALS: BP 94/49
[2018-07-22 06:01] LABS: ANION GAP 10.8 mmol/L (8-16); CALCIUM 9.2 mg/dL (8.5-10.1); CARBON DIOXIDE 26.1 mmol/L (21.0-32.0); POTASSIUM - SERUM 3.9 mmol/L (3.5-5.1)
--- NOTE | 2018-07-22 07:25 | NUR ---
REPORT [id number] FROM PAINTER SPRAY AND PATIENT CARE ASSUMED. PATIENT IS AWAKE, ALERT AND ORIENTED X 4 . PATIENT IS LAYING IN BED AWAKE, ALERT AND ORIENTED X 4 . PATIENT IS STABLE AND VSS. PATIENT DENIES ANY NEEDS OR PAIN. WILL CONTINUE WITH PLAN OF CARE. SR UP X 2 BED IN LOW POSITION AND CALL LIGHT IN REACH.
[2018-07-22 08:05] VITALS: BP 119/79
[2018-07-22] MEDS ORDERED: LEVAQUIN750 MG PO (11:44)
[2018-07-22] MEDS ORDERED: TESSALON PERLE100 MG PO (11:44)
[2018-07-22] MEDS ORDERED: OMNICEF300 MG PO (11:45)
[2018-07-22] MEDS ORDERED: SINGULAIR10 MG PO (11:46)
[2018-07-22] MEDS ORDERED: MUCINEX DM ER1 EAC1 PO (11:46)
[2018-07-22] MEDS ORDERED: FLUTICASONE PRO16 GM NASAL (11:47)
[2018-07-22] MEDS ORDERED: STERAPRED DS 1210 MG PO (11:47)
--- NOTE | 2018-07-22 11:58 | NUR ---
PER PATIENT REQUEST TO CALL MEDS TO [facility] [address].
[2018-07-22 12:00] VITALS: BP 132/81
--- NOTE | 2018-07-22 13:15 | NUR ---
I CALLED REDDY IN THE PHARMACY TO ADD THE TRELEGY INHALER TO PROFILE SO IT CAN BE ADDED TO HOME MEDICATION LIST. STATES THAT [facility] WILL WORK ON IT.
[2018-07-22] MEDS ORDERED: TRELEGY ELLIPT1 EACH INH (13:21)
--- NOTE | 2018-07-22 14:08 | NUR ---
PATIENT IS STABLE AND VSS. ORDERS RECEIVED FOR DC. DISCHARGE INSTRUCTION GIVEN VERBALLY AND WRITTEN. ANSWERED PATIENT QUESTIONS TO PATIENT SATISFACTION AND PATIENT VERBALIZED UNDERSTANDING AND SIGNED INSTRUCTIONS. IV DC WITHOUT DIFFICULTY AND TELEMETRY REMOVED. PATIENT REFUSED WC AND AMBULATED TO FRONT DOOR TO PRIVATE VEHICLE DRIVEN BY FAMILY MEMBER.
--- NOTE | 2018-07-22 17:30 | MORECARE ---
CASE MANAGEMENT DISCHARGE SUMMARY PATIENT: ARIAN PERAZA UNIT: [id number] ADM DATE: 07/18/18 AGE: 62 : 53 SEX: F ROOM/BED: D.0347 AUTHOR: KETAN,DOC PHYSICIAN: REFERRING PHYSICIAN: YANCY BRAN MD DATE OF SERVICE: 07/22/18 Discharge Plan Patient Name: ARIAN PERAZA Facility: [facility]:[place] : 1955 Planned Disposition: Home Anticipated Discharge Date: 07/22/18 Discharge Date: 07/22/2018 Expected LOS: 4 Initial Reviewer: [email or web address] Initial Review Date: 07/22/2018 Generated: 07/22/18 6:30 pm Comments DCP- Discharge Planning Updated by [email or web address]: Yevgeniy Robison on 07/22/18 4:[address] Patient Name: ARIAN PERZAA Admission Status: Elective Accout number: [id number] Admission Date: 07-18-2018 : 1955 Admission Diagnosis: Attending: YANCY TRAMMELL Current LOS: 4 Anticipated DC Date: 07-22-2018 Planned Disposition: Home Primary Insurance: [employer] OUT OF STATE Discharge Planning Comments: CM MET WITH PT IN ROOM TO DISCUSS DISCHARGE PLANNING AND NEEDS. PT REPORTS LIVING AT HOME INDEPENDENTLY WITH HER SPOUSE. PT HAS NO MEDICAL EQUIPMENT AND NO OUTSIDE SERVICES ASSISTING IN THE HOME. CM DISCUSSED AVAILABILITY OF HOME HEALTH, REHAB SERVICES AND MEDICAL EQUIPMENT. PT DENIES DISCHARGE NEEDS, REPORTS HER SON WILL PICK HER UP FOR DISCHARGE HOME. RECORDS CUSTODIAN NURSE NOTIFIED. Director Marketing Communications: Yevgeniy Robison DCPIA - Discharge Planning Initial Assessment Updated by [email or web address]: Yevgeniy Robison on 07/22/18 5:22 pm * Is the patient Alert and Oriented? Yes * How many steps to enter\exit or inside your home? NONE * PCP DR. PETERSON * [facility] * Preadmission Environment Home with Family * ADLs Independent * Equipment None * Other Equipment NO MEDICAL EQUIPMENT PROVIDER PREFERENCE * List name and contact numbers for known caregivers / representatives who currently or will assist patient after discharge: JONH PERAZA, SPOUSE, * Verbal permission to speak to the caregivers and representatives has been obtained from the patient. N/A * Community resources currently utilized None * Please name any agencies selected above. NONE * Additional services required to return to the preadmission environment? No * Can the patient safely return to the preadmission environment? Yes * Has this patient been hospitalized within the prior 30 days at any hospital? No Patient Name: ARIAN PERAZA Page [phone] at 1730 All edits/amendments must be made on the electronic document DICTATION DATE: 07/22/181729 COPPERSMITH APPRENTICE: MOOK 07/22/181729 RPT#: [id number] DC DATE:07/22/18 STATUS: DIS IN [facility] [address] [place] [address] END OF REPORT
--- NOTE | 2018-07-24 10:39 | EC ---
PATIENT:ARIAN PERAZA DATE OF SERVICE: 07/18/18 SEX: F MEDICAL RECORD: [id number] DATE OF : 53 LOCATION:D.M2 D.212 AGE OF PATIENT: 62 ADMISSION DATE: 07/18/18 REFERRING PHYSICIAN: INTERPRETING PHYSICIAN: SONALI BUCIO MD ECHOCARDIOGRAM REPORT ECHO CHARGES 4 ECHO COMPLETE Date: 07/19/18 CLINICAL DIAGNOSIS: CHF ECHOCARDIOGRAPHIC MEASUREMENTS (adult normal given) AC root (d.<3.7cm) 2.9 cm LV Septum d (<1.2 cm> 0.8 cm Valve Excursion 1.5 cm LV Septum (systole) 1.0 cm Left Atria (s.<4.0cm> 3.0 cm LVPW d(<1.2cm) 1.0 cm RV (d.<2.3cm) 2.6 cm LVPW (sytole) 1.3 cm LV diastole(<5.6CM) 5.2 cm MV E-F(>70mm/sec) cm LV systole 3.9 cm LVOT Diameter 1.8 cm MV exc.(>10mm) cm Est.ejection fraction (50-75%) % DOPPLER: LVIT cm/sec A 92 cm/sec E 82 cm/sec LA cm/sec RVSP 13.9 mmHg LVOT 99 cm/sec AOP1/2T m/s Asc. Ao 124 cm/sec RVOT 87 cm/sec RA cm/sec PA 106 cm/sec AV Gradient Peak 6.2 mmHg AV Mean 3.9 mmHg AV Area 2.2 cm MV Gradient Peak 5.1 mmHg MV Mean 2.9 mmHg MV Area cm COMMENTS: Public Relations Associate: Jose GARZAFANY SHIVANI Armature Tester: 1 Dr. Bucio TAPE# PACS Pericardial Effusion Y DATE OF SERVICE: 07/19/2018 FINDINGS: 1. Left ventricular chamber size is upper limits of normal, left ventricular systolic function is moderately reduced, overall ejection fraction 35%. 2. Left atrium, right atrium, and right ventricular chamber sizes are within normal limits. 3. Valvular structures have normal structure and motion. 4. Doppler interrogation reveals trace mitral regurgitation, no other valvular insufficiency or stenosis. ECHOCARDIOGRAM REPORT [id number] ARIAN PERAZA 5. No evidence of pericardial effusion or left ventricular thrombus. TRANSINT:[id number] Voice Confirmation ID: [id number] DOCUMENT ID: [id number] SONALI BUCIO MD at 1039 CC: [id number] DICTATION DATE: 07/19/18 1217 UNEMPLOYMENT INSURANCE DIRECTOR: 07/19/18 1239 DIS IN 07/22/18 [place] [id number] [place] [id number]
--- NOTE | 2018-07-24 10:39 | CN ---
PATIENT NAME:ARIAN CARABALLO MEDICAL RECORD: [id number] : 53 LOCATION:D. D.2124 ADMIT DATE: 07/18/18 ACCOUNT: [id number] CONSULTING PHYSICIAN: SONALI BROCK MD REFERRING PHYSICIAN: YANCY BRAN MD DATE OF CONSULTATION: 07/19/2018 ADMITTING DIAGNOSES: 1. Chest pain. 2. Coronary artery disease. 3. Previous percutaneous transluminal coronary angioplasty stent. 4. Chronic obstructive pulmonary disease. 5. Hypertension. 6. Gastroesophageal reflux disease. 7. Pneumonia. HISTORY OF PRESENT ILLNESS: Mrs. Caraballo began having chest discomfort; however, this was in conjunction with a bronchitis that on chest x-ray has progressed to a left lung pneumonia. Her chest pain was not like that of her previous angina. She does have a history of coronary artery disease, previous PTCA stent approximately a year ago. With the oxygen and treatment of the pneumonia overnight, her chest pain has resolved. Her EKG is with no ST-T abnormalities. She has a normal troponin. PHYSICAL EXAMINATION: GENERAL APPEARANCE: Well-nourished, well-developed, appears stated age. Level of distress, comfortable. PSYCHIATRIC: Mental status, alert, normal affect. Orientation, oriented to time, place and person. EYES: Lids and conjunctiva, noninjected. No discharge, no pallor. ENT: Lips, teeth, gums, normal dentition. Oropharynx, no cyanosis, no pallor. NECK: Carotid arteries, bilateral normal upstroke, no bruits, no thrills. JUGULAR VEINS: No jugular venous pressure or distention. CERVICAL LYMPH NODES: Nontender, nonenlarged. THYROID: Not enlarged. Nontender. No nodules. LUNGS: Respiratory effort, unlabored. CHEST: Normal curvature. No thoracic deformity. No chest wall tenderness. Percussion, resonant. Auscultation, clear. No wheezes, no rales, no rhonchi. CARDIOVASCULAR: Precordial exam, nondisplaced. No heaves or pericardial thrills. Rate and rhythm, regular. Heart sounds, normal S1, normal S2. No S3, no gallop, no rub. Systolic murmur, not heard. Diastolic murmur, not heard. EXTREMITIES: No cyanosis, no edema. Peripheral pulses, full and equal in all extremities, except as noted. No bruits appreciated. ABDOMEN: Soft, nondistended. Normal aorta. No bruit. Nontender. No masses. Liver, nontender, no hepatomegaly. Spleen, nontender, no splenomegaly. MUSCULOSKELETAL: No joint tenderness. No joint swelling. No erythema. NEUROLOGICAL: Normal gait, normal strength, normal tone. SKIN: Warm and dry. OVERALL IMPRESSION: Chest pain related to pneumonia. This is not cardiac in nature at this time. No other cardiac workup or treatment is necessary at this time. TRANSINT:[id number] Voice Confirmation ID: [id number] DOCUMENT ID: [id number] CONSULT REPORT [id number] ARIAN CARABALLO, SONALI MACHUCA at 1039 CC: [id number] DICTATION DATE: 07/19/[address]: 07/19/18 1140 DIS IN 07/22/18 [place] [id number] [place] [address]
== END 2018-07-22 14:12 | disposition home or self-care (01) | DRG 178 ==
LOC: D.M2 13:43
PROVIDERS: Internal Medicine Nephrology; ADMIT Family Medicine; ATTEND Family Medicine
DX: J15.6 Pneumonia due to other Gram-negative bacteria (principal); J44.0 Chronic obstructive pulmonary disease with (acute) lower respiratory infection; I50.22 Chronic systolic (congestive) heart failure; J44.1 Chronic obstructive pulmonary disease with (acute) exacerbation; I25.10 Atherosclerotic heart disease of native coronary artery without angina pectoris; J13 Pneumonia due to Streptococcus pneumoniae; K21.9 Gastro-esophageal reflux disease without esophagitis; I11.0 Hypertensive heart disease with heart failure; E03.9 Hypothyroidism, unspecified; J30.9 Allergic rhinitis, unspecified; E87.6 Hypokalemia; K57.90 Diverticulosis of intestine, part unspecified, without perforation or abscess without bleeding; Z87.891 Personal history of nicotine dependence

== ENCOUNTER 2018-09-13 10:44 | Emergency (ER) | payer BC ==
[~2018-09-13] VITALS: Ht 167.6 cm; Wt 97.7 kg
[~2018-09-13 10:44] MED LIST changes: +FLUTICASONE PRO16 GM NASAL; +LEVAQUIN750 MG PO; +LEVOXYL112 MC1 PO; +MUCINEX DM ER1 EAC1 PO; +OMNICEF300 MG PO; +SINGULAIR10 MG PO; +STERAPRED DS 1210 MG PO; +TESSALON PERLE100 MG PO; +TRELEGY ELLIPT1 EACH INH
[2018-09-13 10:55] VITALS: Ht 167.6 cm; Wt 97.7 kg
[2018-09-13] MEDS ORDERED: ENTRESTO 24 MG1 EACH PO (11:00)
[2018-09-13 12:40] LABS: EOSINOPHILS 4.1 % (0-7); HEMATOCRIT 43.5 % (36.0-48.0); HEMOGLOBIN 15.4 g/dL (12-16); IMMATURE GRANULOCYTES 0.5 % (0-5); LYMPHOCYTES 26.5 % (15-50); MCH 32.2 pg (26.0-34.0); MCHC 35.4 g/dL (31.0-37.0); MCV 90.8 fL (80.0-100.0); MEAN PLATELET VOLUME 9.8 fL (7.4-10.4); NEUTROPHILS 60.9 % (40-80); RBC 4.79 10x6/uL (4.00-5.40); RDW 13.1 % (11.5-14.5); WBC 9.7 10x3/uL (4.8-10.8)
[2018-09-13 12:43] LABS: PLATELET COUNT 307 10x3/uL (130-400)
[2018-09-13 12:55] LABS: ALBUMIN 3.7 g/dL (3.4-5.0); ALKALINE PHOSPHATASE 266 U/L (46-116); ALT (SGPT) 41 U/L (10-68); BILIRUBIN - TOTAL 0.23 mg/dL (0.2-1.3); CALC OSMOLALITY 287 mosm/kg (275-300); CALCIUM 9.9 mg/dL (8.5-10.1); CARBON DIOXIDE 25.8 mmol/L (21.0-32.0); CHLORIDE - SERUM 106 mmol/L (98-107); CREATININE - SERUM 0.8 mg/dL (0.6-1.3); GLUCOSE 110 mg/dL (74-106); PROTEIN - SERUM 7.8 g/dL (6.4-8.2); SODIUM 143 mmol/L (136-145); UREA NITROGEN 18 mg/dL (7-18); eGFR NON AFRICAN AMERICAN 77 mL/min (90-120)
[2018-09-13] MEDS ORDERED: VIBRAMYCIN 100100 MG PO (13:00)
[2018-09-13] MEDS ORDERED: PREDNISONE20 MG PO (13:00)
[2018-09-13 13:20] VITALS: BP 124/76
== END 2018-09-13 13:22 | disposition home or self-care (01) ==
LOC: D.ER 10:44
PROVIDERS: Family Medicine
DX: J44.1 Chronic obstructive pulmonary disease with (acute) exacerbation (principal); Z86.79 Personal history of other diseases of the circulatory system

== ENCOUNTER → 2018-12-02 13:14 | Outpatient (CLI) | payer BC ==
[2018-09-13 10:55] VITALS: BMI 34.7
[~2018-12-02 13:14] MED LIST changes: +ENTRESTO 24 MG1 EACH PO; +PREDNISONE20 MG PO; +VIBRAMYCIN 100100 MG PO
--- NOTE | 2018-12-04 11:58 | EC ---
PATIENT:ARIAN PERAZA DATE OF SERVICE: 12/02/18 SEX: F MEDICAL RECORD: [id number] DATE OF : 53 LOCATION:[facility] [place] AGE OF PATIENT: 63 ADMISSION DATE: 12/02/18 REFERRING PHYSICIAN: INTERPRETING PHYSICIAN: LILIBETH REYNA MD ECHOCARDIOGRAM REPORT ECHO CHARGES 4 ECHO COMPLETE Date: 12/02/18 CLINICAL DIAGNOSIS: CARDIOMYOPATHY/ASSESS EF ECHOCARDIOGRAPHIC MEASUREMENTS (adult normal given) AC root (d.<3.7cm) 3.2 cm LV Septum d (<1.2 cm> 1.2 cm Valve Excursion 1.5 cm LV Septum (systole) 1.5 cm Left Atria (s.<4.0cm> 4.4 cm LVPW d(<1.2cm) 1.2 cm RV (d.<2.3cm) 3.3 cm LVPW (sytole) 1.6 cm LV diastole(<5.6CM) 5.5 cm MV E-F(>70mm/sec) cm LV systole 4.1 cm LVOT Diameter 1.3 cm MV exc.(>10mm) 1.2 cm Est.ejection fraction (50-75%) % DOPPLER: LVIT cm/sec A 95.0 cm/sec E 59.0 cm/sec LA cm/sec RVSP 19 mmHg LVOT 113 cm/sec AOP1/2T m/s Asc. Ao 110 cm/sec RVOT 79 cm/sec RA cm/sec PA 108 cm/sec AV Gradient Peak 4.88 mmHg AV Mean 2.65 mmHg AV Area 2.8 cm MV Gradient Peak 4.55 mmHg MV Mean 1.56 mmHg MV Area cm COMMENTS: Household Personal Assistant: 2 MARIBEL KING Hose Wrapper: 2 Dr. Ferguson TAPE# PACS Pericardial Effusion N DATE OF SERVICE: Adequate 2D, Color Flow, Spectral Doppler, and M-mode Borderline LVH. LV internal dimensions are normal, hypokinesis of the anterior apical and apical septum. Overall, LV function appears to be mildly reduced at 40% to 45%. Aortic valve is tricuspid. There is no evidence of stenosis of Doppler interrogation. Left atrium is mildly dilated at 4.4 cm. Mitral valve shows no prolapse. Mild MR. Right-sided chambers are grossly normal. Trace TR. ECHOCARDIOGRAM REPORT [id number] ARIAN PERAZA TRANSINT:[id number] Voice Confirmation ID: [id number] DOCUMENT ID: [id number] LILIBETH REYNA MD at 1158 CC: [id number] DICTATION DATE: 12/03/18 1326 CHIEF MEDICAL DIRECTOR: 12/03/182028 DEP CLI 12/02/18 [place] [id number] [place] [id number]
== END | disposition home or self-care (01) ==
LOC: D.HCCECHO 13:14 → D.HCCARDIO 14:00
PROVIDERS: ATTEND Internal Medicine Cardiovascular Disease
DX: I42.9 Cardiomyopathy, unspecified (principal)

== ENCOUNTER → 2019-02-11 14:16 | Outpatient (CLI) | payer BC ==
[2018-09-13 10:55] VITALS: BMI 34.7
[2019-02-12 10:10] LABS: IMMUNOGLOBULIN A 241 mg/dL (87-352); IMMUNOGLOBULIN G 727 mg/dL (700-1600)
[2019-02-15 03:07] LABS: IMMUNOGLOBULIN E 13 IU/mL (6-495)
== END | disposition home or self-care (01) ==
LOC: D.RAD 01-28 09:30 → D.LAB 01-28 09:45 → D.RAD 13:15
PROVIDERS: ATTEND Internal Medicine Pulmonary Disease
DX: J30.9 Allergic rhinitis, unspecified (principal); J44.9 Chronic obstructive pulmonary disease, unspecified

== ENCOUNTER → 2019-11-03 18:52 | Outpatient (CLI) | payer BC | END | disposition home or self-care (01) | LOC: D.MAMMO 10-27 13:30 | PROVIDERS: ATTEND Nurse Practitioner Family | DX: Z12.31 Encounter for screening mammogram for malignant neoplasm of breast (principal) ==

== ENCOUNTER → 2020-07-26 08:30 | Outpatient (CLI) | payer MEDICARE ==
--- NOTE | 2020-07-27 14:10 | ST ---
PATIENT:ARIAN PERAZA MEDICAL RECORD: [id number] SEX: F LOCATION:[facility] ORDER #: ADMISSION DATE: 07/26/20 AGE OF PATIENT: 64 REFERRING PHYSICIAN: INTERPRETING PHYSICIAN: LILIBETH REYNA MD DATE OF SERVICE: 07/26/2020 Cardiolite stress test. FINDINGS: Gated is abnormal with decreased thickening, wall motion of the anterior and anterior apex and inferoapical region. LV function was reduced at 43%. SPECT imaging: SPECT in short axis view shows a mixed defect involving the anterior apex, apical and inferoapical region. There is reversibility along the mid anterior wall. This confirmed in the horizontal axis with a mixed defect with mostly fixed along the apex, anterior apical and inferoapical region, but with reversibility along the mid anterior wall. A vertical axis, vertical shows a fixed apical defect. FINAL IMPRESSION: 1. Normal gated with abnormal wall motion and reduced EF 40%. 2. Abnormal SPECT imaging with a mixed defect involving the apex with reversibility along the mid anterior wall. The defect severity is moderate, defect size is large. FINAL IMPRESSION: This person with known underlying coronary artery disease, does appear to be ongoing ischemia in this study. Consider angiography as clinically indicated. TRANSINT:[id number] Voice Confirmation ID: [id number] DOCUMENT ID: [id number] LILIBETH REYNA MD at 1410 CC: [id number] DICTATION DATE: 07/26/20 1643 BACK CLOSER: 07/27/20 0833 DEP CLI 07/26/20 [place] [id number] [place] [address]
== END | disposition home or self-care (01) ==
LOC: D.HCCARDIO 08:30
PROVIDERS: ATTEND Internal Medicine Interventional Cardiology
DX: I10 Essential (primary) hypertension (principal); R06.00 Dyspnea, unspecified; I25.10 Atherosclerotic heart disease of native coronary artery without angina pectoris; I42.9 Cardiomyopathy, unspecified

== ENCOUNTER 2020-08-02 11:18 | Day surgery (SDC) | payer MEDICARE ==
[~2020-08-02] VITALS: Ht 167.6 cm; Wt 100.5 kg
--- NOTE | ~2020-08-02 | HEMODYNAMI ---
PATIENT:ARIAN PERAZA MEDICAL RECORD: [id number] : 53 LOCATION:D.CAT ADMISSION DATE: 08/02/20 Generatedon:113:09 Patient name: ARIAN PERAZA Patient #: [id number] SSN: : 1955 Date of study: 08/02/2020 Page: Of Hemodynamic Procedure Report Patient Data Patient Demographics Procedure consent was obtained First Name: ARIAN Gender: Female Last Name: STU : 1955 [facility] Initial: DUY Age: 64 year(s) Patient #: [id number] Race: Unknown Additional ID: [id number] Contact details Address: [address] [place] [address] State: [place] City: [place] Zip code: [address] Past Medical History Allergies Allergen Reaction Date Comments Reported Iodine 07/25/2018 Codeine 07/25/2018 Sulfa drugs 07/25/2018 Other allergy 08/02/2020 CODEINE, PCN, CONTRAST, SULFA Admission Admission Data Admission Date: 08/02/2020 Admission Time: 11:18 Arrival Date: 08/02/2020 Arrival Time: 0:00 Admit Source: Other Insurance Payor: Private health insurance [facility] #: [id number] Height (in.): 66 BSA: 2.09 (m2) Height (cm.): 167.64 BMI: 35.74 (kg/m2) Weight (lbs.): 221.46 Weight (kg.): 100.45 Lab Results Lab Result Date: 08/02/2020 Lab Result Time: 0:00 Biochemistry Name Units Result Min Max BUN mg/dl 26 --(----)-* 7 18 Creatinine mg/dl 0.8 --(-*--)-- 0.6 1.3 eGFR ml/min 76.68277 *-(----)-- 90 120 NONAFRICAN CBC Name Units Result Min Max Hematocrit % 40.6 -*(----)-- 42 54 Hemoglobin g/dl 13.9 --(*---)-- 13.5 17.5 Procedure Procedure Types Cath Procedure Diagnostic Procedure [facility] w/Coronaries Sedation Charges Moderate Sedation 10-24 minutes Procedure Description Procedure Date Procedure Date: 08/02/2020 Procedure Start Time: 12:50 Procedure End Time: 13:04 Procedure Staff Name Function Mandeep Ferguson MD Performing Physician Chel Reese RT Monitor Angelic Martin RN Nurse Ananda Moralez RN Nurse Vickie Fine RT Scrub Procedure Data Cath Procedure Fluoroscopy Diagnostic fluoroscopy Total fluoroscopy Time: 1.8 time: 1.8 min min Diagnostic fluoroscopy Total fluoroscopy dose: 474 dose: 474 mGy mGy Contrast Material Contrast Material Type Amount (ml) Isovue 370 73 Entry Location Entry Primary Successful Side Size Upsize Upsize Entry Closure Succes sful Closure Location (Fr) 1 (Fr) 2 (Fr) Remarks Device Remarks Femoral Right 5 Fr Exoseal artery Estimated blood loss: 5 ml Diagnostic catheters Device Type Used For End Catheter Placement MULTIPACK JL 4.0 5Fr Procedure catheter MULTIPACK 3DRC 5Fr Procedure catheter MULTIPACK Pigtail 5 Fr Procedure catheter Procedure Complications No complications Procedure Medications Medication Administration Route Dosage Zofran I.V. 4 mg 0.9% NaCl I.V. 100 ml/hr Oxygen etCO2 Nasal cannula 2 l/min Lidocaine 2% added to field 20 Heparin Flush Bag added to field 2 bags (1000units/500ml NS) Fentanyl I.V. 50 mcg Versed I.V. 1 mg Versed I.V. 1 mg Fentanyl I.V. 50 mcg Fentanyl I.V. 50 mcg Versed I.V. 1 mg Fentanyl I.V. 50 mcg Versed I.V. 1 mg Hemodynamics Rest BSA: 2.09 (m2) HGB: 13.9 (g/dl) O2 Consumption: Estimated: 202.36 (ml/min) O2 Co nsumption indexed: Estimated:96.82 (ml/min/m) Heart Rate: 79 (bpm) Pressure Samples Time Site Value (mmHg) Purpose Heart Use Rate(bpm) 12:59 LV 111/18,33 Snapshot 88 Gradients Valve Time Site Site Mean SEP/DFP Peak To Heart Use 1 2 (mmHg) (sec/min) Peak Rate (mmHg) (bpm) Aortic 13:00 LV AO 88 Snapshots Pre Cath Intra NCS Post Cath Vital Signs Time Heart Resp SPO2 etCO2 NIBP Rhythm Pain Sedation Rate (ipm) (%) (mmHg) (mmHg) Status Level (bpm) 12:42:12 89 24 96 27.8 125/76(98) NSR 0 (11) 10(A) , No pain 12:46:34 87 15 98 17.3 120/75(97) NSR 0 (11) 10(A) , No pain 12:50:53 85 20 96 0 114/71(85) NSR 0 (11) 10(A) , No pain 12:55:11 89 32 92 0 114/75(88) NSR 0 (11) 10(A) , No pain 12:59:29 89 12 93 17.2 118/71(87) NSR 0 (11) 10(A) , No pain 13:03:43 87 10 96 14.2 117/74(93) NSR 0 (11) 10(A) , No pain 13:07:59 85 8 97 22.5 118/72(96) NSR 0 (11) 10(A) , No pain Medications Time Medication Route Dose Verified Delivered Reason Notes Eff ectiveness by by 12:41:13 Zofran I.V. 4 mg Mandeep Ananda for nausea Marty Moralez RN 12:41:25 0.9% NaCl I.V. 100 Mandeep Ananda used for ml/hr Marty Moralez rotary driller 12:41:45 Oxygen etCO2 2 Mandeep Ananda used for Nasal l/min Marty Moralez rotary driller cannula 12:41:54 Lidocaine 2% added 20ml Mandeep Mandeep for local to vial Marty Ferguson MD anesthetic field 12:42:21 Heparin Flush added 2 Mandeep Mandeep used for Bag to bags Marty Ferguson MD procedure (1000units/500ml field NS) 12:46:04 Versed I.V. 1 mg Mandeep Ananda for Marty Moralez RN sedation 12:46:08 Fentanyl I.V. 50 Mandeep Ananda for mcg Marty Moralez RN sedation 12:50:49 Fentanyl I.V. 50 Mandeep Ananda for mcg Marty Moralez RN sedation 12:50:58 Versed I.V. 1 mg Mandeep Ananda for Marty Moralez RN sedation 12:53:23 Fentanyl I.V. 50 Mandeep Ananda for mcg Marty Moralez RN sedation 12:53:26 Versed I.V. 1 mg Mandeep Ananda for Marty Moralez RN sedation 12:55:30 Fentanyl I.V. 50 Mandeep Ananda for mcg Marty Moralez RN sedation 12:55:33 Versed I.V. 1 mg Mandeep Ananda for Marty Moralez RN sedation Procedure Log Time Note 12:24:11 Angelic Martin RN sent for patient. Start room use. 12:24:12 Time tracking: Regular hours (M-F 7:00 - 5:00) 12:24:16 Plan of Care:Hemodynamics will remain stable., Cardiac rhythm will remain stable., Comfort level will be maintained., Respiratory function will remain adequate., Patient/ family verbilizes understanding of procedure., Procedure tolerated without complication., Recovers from procedure without complications.. 12:27:05 Admit Source: Other 12:27:08 ACC Patient presents with Stable Angina CCS Anginal Class 2--Slight limitation of ordinary activity. 12:27:12 Procedure Status Elective Heart Cath (OP). 12:27:19 H&P Date Dictated: 07/15/2020 Within 30 days and on chart.. 12:27:21 Pre-procedure instructions explained to patient. 12:27:21 Pre-op teaching completed and patient verbalized understanding. 12:27:23 Family in waiting room. 12:27:24 Patient NPO since Midnight. 12:27:53 Patient allergic to Other allergyCODEINE, PCN, CONTRAST, SULFA 12:27:57 Alarms reviewed by R. N. 12:27:58 Sharps counted by scrub and verified by R.N. 12:28:00 Lab results completed and on chart. 12::21 Lab Result : Hematocrit 40.6 % 12::21 Lab Result : Hemoglobin 13.9 g/dl 12:28:25 Stress Test: no; N/A ? 12::29 Diagnostic Cath Status : Elective 12:29:34 Arrival Date: 08/02/2020 12:00:00 AM 12:29:39 Insurance Payor : Private health insurance 12:29:52 Patient Height : 66 inches 12:29:57 Patient Weight : 221.46 lbs 12:31:33 Patient received from Pre/Post Procedure Room to [facility] 1 Alert and oriented. Tansferred to table in Supine position. 12:31:36 Signed procedure consent form obtained from patient. 12::37 Warm blankets applied, and nilesh hugger turned on for patient comfort. 12::37 Correct patient and procedure confirmed by team. 12::38 ECG and BP/O2 sat monitors applied to patient. 12:31:39 Full Disclosure recording started 12:31:41 Is the patient allergic to Iodine/contrast media? Yes. 12:40:57 Vital chart was started 12:41:12 Rhythm: sinus rhythm 12:41:13 Zofran 4 mg I.V. was administered by Ananda Moralez RN; for nausea; Verbal order read back and verified. 12:41:23 Was the patient premedicated? Yes 12:41:24 Is patient on blood thinner?No 12:41:25 0.9% NaCl 100 ml/hr I.V. was administered by Ananda Moralez RN; used for procedure; Verbal order read back and verified. 12:41:25 Patient diabetic? No. 12:41:27 If diabetic: On Metformin? N/A 12:41:29 Patient not . Patient is over age 55. 12:41:31 ----Pre-sedation anethsthesia assessment.---- 12:41:35 Previous problem with sedation/anesthesia? No ? 12:41:36 Snore? Unknown 12:41:38 Sleep apnea? Unknown 12:41:39 Deviated septum? No 12:41:40 Opens mouth fully? Yes 12:41:41 Sticks out tongue? Yes 12:41:45 Oxygen 2 l/min etCO2 Nasal cannula was administered by Ananda Moralez RN; used for procedure; Verbal order read back and verified. 12:41:45 Airway obstruction? Yes COPD 12:41:48 Dentures? No ? 12:41:54 Lidocaine 2% 20ml vial added to field was administered by Mandeep Ferguson MD; for local anesthetic; Verbal order read back and verified. 12:41:54 Pre procedure: right dorsailis pedis pulse 1+ Palpable, but thready & weak; easily obliterated 12:41:56 Patient pain scale 0/10 ?. 12:42:03 IV patent on arrival in left wrist with 0.9% NaCl at [facility]. 12:42:07 Right groin area was prepped with chlora-prep and draped in sterile fashion 12:42:14 Baseline sample Acquired. 12:42:20 Use device set Femoral Dx 12:42:21 Heparin Flush Bag (1000units/500ml NS) 2 bags added to field was administered by Mandeep Ferguson MD; used for procedure; Verbal order read back and verified. 12:42:21 ACIST Syringe (21979) opened to sterile field. 12:42:22 Bag Decanter (2002S) opened to sterile field. 12:42:22 Medline Cath Pack ([id number]) opened to sterile field. 12:42:23 ACIST Hand Control (18219) opened to sterile field. 12:42:24 ACIST Manifold (90529) opened to sterile field. 12:42:24 DIAGNOSTIC Multipack 5Fr catheter set ([id number]) opened to sterile field. 12:42:26 SHEATH 5FR [place] (AMH792) opened to sterile field. 12:42:27 EMERALD Guide Wire (848-715) opened to sterile field. 12:42:28 Tegaderm 4 x 4 (1626W) opened to sterile field. 12:44:29 Lab Result : eGFR NONAFRICAN 76.67116 ml/min 12:44:29 Lab Result : Creatinine 0.8 mg/dl 12:44:29 Lab Result : BUN 26 mg/dl 12:45:33 --------ALL STOP TIME OUT------ 12:45:35 Final Timeout: patient, procedure, and site verified with staff and physician. All members of the team are in agreement. 12:45:36 Right groin site verified by team. 12:45:41 Fire Safety Assessment: A--An alcohol-based skin anteseptic being used preoperatively., C--Open oxygen or nitrous oxide is being used., D--An ESU, laser, or fiber-optic light is being used. 12:45:44 Physical assessment completed. ASA score P 2 - A patient with mild systemic disease as per Mandeep Ferguson MD. 12:45:47 2) 60-89 Mildly reduced kidney function, and other findings (as for stage 1) point to kidney disease. 12:45:48 Maximum allowable contrast dose (3.7 X eGFR X 0.75)211 ml. 12:45:53 Sedation plan: IV Moderate Sedation Medication:Versed, Fentanyl 12:46:04 Versed 1 mg I.V. was administered by Ananda Moralez RN; for sedation; Verbal order read back and verified. 12:46:08 Fentanyl 50 mcg I.V. was administered by Ananda Moralez RN; for sedation; Verbal order read back and verified. 12:49:53 Procedure started. 12:50:29 Local anesthetic to right femoral artery with Lidocaine 2% by Mandeep Ferguson MD.INITIAL ACCESS ONLY 12:50:40 Zero performed for pressure channel P1 12:50:48 Zero performed for pressure channel P1 12:50:49 Fentanyl 50 mcg I.V. was administered by Ananda Moralez RN; for sedation; Verbal order read back and verified. 12:50:55 Zero performed for pressure channel P1 12:50:58 Versed 1 mg I.V. was administered by Ananda Moralez RN; for sedation; Verbal order read back and verified. 12:51:07 Zero performed for pressure channel P1 12:52:48 A 5 Fr sheath was inserted into the Right Femoral artery 12:53:19 A MULTIPACK JL 4.0 5Fr catheter was advanced over the wire and used for Procedure. 12:53:23 Fentanyl 50 mcg I.V. was administered by Ananda Moralez RN; for sedation; Verbal order read back and verified. 12:53:26 Versed 1 mg I.V. was administered by Ananda Moralez RN; for sedation; Verbal order read back and verified. 12:54:04 LCA angiography performed. 12:54:07 Injector settings: Ml/sec: 3, Volume: 6, 12:55:30 Fentanyl 50 mcg I.V. was administered by Ananda Moralez RN; for sedation; Verbal order read back and verified. 12:55:33 Versed 1 mg I.V. was administered by Ananda Moralez RN; for sedation; Verbal order read back and verified. 12:57:07 Catheter exchanged over wire. 12:57:43 A MULTIPACK 3DRC 5Fr catheter was advanced over the wire and used for Procedure. 12:58:25 RCA angiography performed. 12:58:28 Injector settings: Ml/sec: 3, Volume: 6, 12:58:45 Catheter exchanged over wire. 12:59:39 A MULTIPACK Pigtail 5 Fr catheter was advanced over the wire and used for Procedure. 12:59:49 LV gram done using SOTO 12:59:59 LV hemodynamics recorded. 13:00:02 Injector settings: Ml/sec: 10, Volume: 20, 13:00:17 EF : 40 % 13:00:43 Catheter removed. 13:00:49 EXOSEAL 5Fr (EX500) opened to sterile field. 13:01:09 Sheath removed intact; hemostasis achieved with Exoseal to the Right Femoral artery. 13:01:22 Fluoroscopy time 01.80 minutes. 13::26 Fluoroscopy dose: 474 mGy 13:: Flurop Dose total: 474 13:01:32 Dose Area Product 74448 mGy/cm. 13:01:56 Contrast amount:Isovue 370 73ml. 13:02:14 Procedure ended.(Physican Out) 13:02:30 Maximum allowable dose exceeded? No. 13:02:31 Sharps counted by scrub and verified by R.N. 13:03:48 Post Procedure Pulses reassessed and unchanged 13:03:51 Post procedure: right dorsailis pedis pulse 1+ Palpable, but thready & weak; easily obliterated. 13:03:55 Post-procedure physical assessment completed. ASA score P 2 - A patient with mild systemic disease as per Mandeep Ferguson MD. 13:03:57 Post procedure rhythm: unchanged. 13:04:00 Estimated blood loss: 5 ml 13:04:02 Post procedure instruction explained to patient.Patient verbalizes understanding. 13:04:03 Patient needs reinforcement of post procedure teaching. 13:04:14 Procedure type changed to Cath procedure, Diagnostic procedure, LHC, [facility] w/Coronaries, Sedation Charges, Moderate Sedation 10-24 minutes 13:04:36 Procedure and supply charges have been captured, reviewed, submitted and are correct. 13:04:39 Procedure Complication : No complications 13:04:45 [facility] Findings: mild to moderate CAD (<70%) 13:04:46 Operative report dictated upon procedure completion. 13:04:47 See physician's report for complete and final results. 13:04:49 Report given to Pre/Post Procedure Room. 13:04:52 Patient transfered to Pre/Post Procedure Room with Stretcher. 13:04:54 Procedure ended. 13:04:54 Full Disclosure recording stopped 13:04:58 End room use (Document Last) 13:07:04 Vital chart was stopped Device Usage Item Name Manufacture Quantity Catalog Hospital Part Current Minimal L ot# / Number Charge Number Stock Stock Serial# Code ACIST Acist 1 30831 975279 554000 [id number] 20 Syringe Medical (24673) Systems Inc Bag Microtek 1 2001S 236716 70718 693924 5 Decanter Medical Inc. (2001S) Medline Medline 1 [id number] 810526 29759 488275 5 Cath Pack ([id number]) ACIST Hand Acist 1 15376 209662 396268 776365 5 Control Medical (02373) Systems Inc ACIST Acist 1 25478 688279 009476 667332 5 Manifold Medical (27495) Systems Inc DIAGNOSTIC Cardinal 1 GF9516 965261 23953 777585 30 Multipack Health 5Fr catheter set (LC3026) SHEATH 5FR Terumo 1 ULO541 205713 645699 443273 5 [place] (USR042) EMERALD Cardinal 1 502-455 819759 465549 383083 [address] [facility] (502-455) Tegaderm 4 3M 1 1626W 019736 438533 586474 5 x 4 (1626W) MULTIPACK Cardinal 1 776252 5 JL 4.0 5Fr Health catheter MULTIPACK Cardinal 1 598572 5 3DRC 5Fr Health catheter MULTIPACK Cardinal 1 395715 5 Pigtail 5 Health Fr catheter EXOSEAL 5Fr Cardinal 1 EX500 468361 677436 071406 10 (EX500) Health Signature Audit [place] Stage Time Signature Unsigned Intra-Procedure 08/02/2020 Chel Reese 1:08:15 PM RT(R) Intra-Procedure 08/02/2020 Angelic Martin RN 1:09:09 PM Intra-Procedure 08/02/2020 Mandeep Ferguson MD 1:09:40 PM [facility] [address] [place] [address]
[2020-08-02 11:54] VITALS: BP 121/79; Ht 167.6 cm; Wt 100.5 kg
[2020-08-02 12:05] LABS: BASOPHILS 0.4 % (0-2); EOSINOPHILS 0.1 % (0-7); HEMATOCRIT 40.6 % (36.0-48.0); HEMOGLOBIN 13.9 g/dL (12-16); IMMATURE GRANULOCYTES 0.6 % (0-5); LYMPHOCYTE ABS# 1.11 10x3/uL (1.18-3.74); LYMPHOCYTES 10.7 % (15-50); MCH 31.4 pg (26.0-34.0); MCHC 34.2 g/dL (31.0-37.0); MCV 91.9 fL (80.0-100.0); MEAN PLATELET VOLUME 10.7 fL (7.4-10.4); MONOCYTES 1.3 % (2-11); NEUTROPHIL ABS# 8.99 10x3/uL (1.56-6.13); NEUTROPHILS 86.9 % (40-80); PLATELET COUNT 280 10x3/uL (130-400); RBC 4.42 10x6/uL (4.00-5.40); RDW 12.6 % (11.5-14.5); WBC 10.3 10x3/uL (4.8-10.8)
[2020-08-02] MEDS ORDERED: SYNTHROID100 MCG PO (12:16)
[2020-08-02] MEDS ORDERED: OMEPRAZOLE20 M1 PO (12:17)
[2020-08-02] MEDS ORDERED: SINGULAIR10 MG PO (12:18)
[2020-08-02] MEDS ORDERED: FUROSEMIDE40 MG PO (12:18)
[2020-08-02] MEDS ORDERED: LIPITOR10 MG PO (12:18)
[2020-08-02] MEDS ORDERED: BAYER CHEWABLE81 MG PO (12:19)
[2020-08-02] MEDS ORDERED: ENTRESTO 49 MG1 EACH PO (12:19)
[2020-08-02] MEDS ORDERED: COREG6.25 MG PO (12:22)
[2020-08-02] MEDS ORDERED: PREDNISONE20 MG PO (12:22)
[2020-08-02 12:30] LABS: ALT (SGPT) 31 U/L (10-68); CALC OSMOLALITY 286 mosm/kg (275-300); CALCIUM 9.4 mg/dL (8.5-10.1); CARBON DIOXIDE 22.9 mmol/L (21.0-32.0); CHLORIDE - SERUM 105 mmol/L (98-107); CHOL - HDL RATIO 2.8 ratio (2.3-4.1); CHOLESTEROL, TOTAL 182 mg/dL (0-200); CREATININE - SERUM 0.8 mg/dL (0.6-1.3); GLUCOSE 162 mg/dL (74-106); HDL CHOLESTEROL 64 mg/dL (32-96); LDL CHOLESTEROL 105 mg/dL (0-100); LDL-HDL RATIO 1.6 ratio (1.5-3.5); POTASSIUM - SERUM 4.4 mmol/L (3.5-5.1); SODIUM 139 mmol/L (136-145); TRIGLYCERIDE 68 mg/dL (30-200); UREA NITROGEN 26 mg/dL (7-18); eGFR NON AFRICAN AMERICAN 76 mL/min (90-120)
--- NOTE | 2020-08-02 13:15 | NUR ---
PT REC'D TO CATH RECOVERY ROOM 4 VIA STRETCHER. MONITORS ESTAB. AT BS. SEE MATCH UP PERSON FLOWSHEETS. ALARMS ON AND C/L IN REACH.
--- NOTE | 2020-08-02 13:30 | NUR ---
R GROIN SITE SOFT, NO S/S BLEEDING OR HEMATOMA. R LEG/FOOT WARM WITH PALP PULSES AND BRISK CAP REFILL. VSS. PT DENIES PAIN OR NEEDS. AT BS. ALARMS ON.
--- NOTE | 2020-08-02 14:00 | NUR ---
PT RESTING QUIETLY. R GROIN SITE SOFT, NO S/S BLEEDING OR HEMATOMA. R LEG/FOOT WARM WITH PALP PULSES. VSS. ALARMS ON AND C/L IN REACH.
--- NOTE | 2020-08-02 14:15 | NUR ---
R GROIN SITE SOFT, NO S/S BLEEDING. HOB ELEVATED. SANDWICH TRAY AND SPRITE PROVIDED. VSS. PT DENIES PAIN OR OTHER NEEDS. ALARMS ON AND C/L IN REACH.
--- NOTE | 2020-08-02 14:45 | NUR ---
PT WATCHING TV, DENIES PAIN OR NEEDS. R GROIN SITE SOFT, NO S/S BLEEDING OR HEMATOMA. PULSES PALP. VSS. ALARMS ON AND C/L IN REACH.
--- NOTE | 2020-08-02 15:15 | NUR ---
R GROIN SITE SOFT, NO S/S BLEEDING OR HEMATOMA. PIV D/C'D INTACT, DSG APPLIED. PT UP TO GET DRESSED AND GO TO BR INDEPENDENTLY.
--- NOTE | 2020-08-02 15:38 | NUR ---
ALL DISCHARGE INSTRUCTIONS REVIEWED WITH PT AND HER , INCLUDING RESTRICTIONS, MEDS AND F/U APPT. BOTH VERBALIZE UNDERSTANDING. PT IS READY FOR D/C. REQUESTS TO WAIT FOR DR. CORTES TO ROUND.
--- NOTE | 2020-08-02 15:55 | NUR ---
DR. CORTES IN TO SEE PT, UPDATE GIVEN AND QUESTIONS ANSWERED.
--- NOTE | 2020-08-02 16:00 | NUR ---
PT D/C'D VIA WC TO PRIVATE VEHICLE WITH ALL PAPERWORK AND BELONGINGS.
== END 2020-08-02 16:00 | disposition home or self-care (01) ==
LOC: D.CATH 11:18
PROVIDERS: ATTEND Internal Medicine Cardiovascular Disease
DX: I25.110 Atherosclerotic heart disease of native coronary artery with unstable angina pectoris (principal); R94.39 Abnormal result of other cardiovascular function study; R06.00 Dyspnea, unspecified; I42.9 Cardiomyopathy, unspecified

== ENCOUNTER → 2020-08-26 08:35 | Outpatient (CLI) | payer MEDICARE ==
[2020-08-02 11:54] VITALS: BMI 35.7
[~2020-08-26 08:35] MED LIST changes: +BAYER CHEWABLE81 MG PO; +COREG6.25 MG PO; +ENTRESTO 49 MG1 EACH PO; +FUROSEMIDE40 MG PO; +LIPITOR10 MG PO; +OMEPRAZOLE20 M1 PO; +SYNTHROID100 MCG PO
== END | disposition home or self-care (01) ==
LOC: D.HCCECHO 08:35
PROVIDERS: ATTEND Internal Medicine Cardiovascular Disease
DX: I25.10 Atherosclerotic heart disease of native coronary artery without angina pectoris (principal)